=== PATIENT | female | born 1970 | race Caucasian/White ===

== ENCOUNTER 2020-10-22 10:32 | Emergency (ER) | payer OTHER ==
[~2020-10-22] VITALS: Ht 152.4 cm; Wt 54.4 kg
[2020-10-22] MEDS ORDERED: LORAZEPAM 1 MG TABLET ONE (10:55)
[2020-10-22] MEDS ORDERED: LORAZEPAM 1 MG TABLET PO ONE (11:00)
--- NOTE | 2020-10-22 11:37 | NUR ---
LINDA TO ER BED 12. AAOX4. NOT IN RESP DISTRESS. ANXIOUS. BROUGHT IN FOR FEELING NERVOUS AND FINGER TINGGLING. PER PT, SHE CAME FROM HER MD APPTS. HER CAR AC IS NOT WORKING AND IT WAS MAKING HER NERVOUS. MD WAS AT THE BEDSIDE FOR EVAL. ORDERS WERE NOTED AND CARRIED OUT
--- NOTE | 2020-10-22 12:26 | NUR ---
Patient discharged to home in stable condition. Written and verbal after care instructions given. Patient verbalizes understanding of instruction. Pt ambulatory with a steady gait
[2020-10-22 12:29] VITALS: BP 145/89
--- NOTE | 2020-10-22 14:30 | NUR ---
SS note SS consult for anxiety. Pt is a 50-year-old, male. Upon arrival to ED, pt had already been discharged. No further SS intervention at this time, however, SW will remain available as needed.
== END 2020-10-22 12:29 | disposition home or self-care (01) ==
LOC: ER 10:32
DX: F41.0 Panic disorder [episodic paroxysmal anxiety] (principal); I10 Essential (primary) hypertension
CPT/HCPCS: 82962-TC